=== PATIENT | female | born 1970 ===

== ENCOUNTER 2020-01-26 10:21 | Emergency (ER) | payer SELFPAY ==
--- NOTE | 2020-01-26 12:27 | Cat Scan Report ---
CT HEAD WITHOUT CONTRAST INDICATION / CLINICAL INFORMATION: Hypertensive patient with headache and dizziness. TECHNIQUE: All CT scans at this location are performed using CT dose reduction for ALARA by means of automated e xposure control. COMPARISON: None available. FINDINGS: HEMORRHAGE: No evidence of intracranial hemorrhage or extra-axial fluid collection. EXTRA-AXIAL SPACES: Cortical sulci, sylvian fissures and basilar cisterns have an unremarkable appear ance. VENTRICULAR SYSTEM: The ventricular system is of normal size and configuration. CEREBRAL PARENCHYMA: No areas of abnormal brain parenchymal attenuation are identified. There is no i ndication of recent infarction. MIDLINE SHIFT OR HERNIATION: There is no mass effect. CEREBELLUM / BRAINSTEM: Brainstem and cerebellum have an unremarkable appearance. INTRACRANIAL VESSELS:No abnormalities are identified on this noncontrast head CT. ORBITS: visualized portions of the orbits have an unremarkable appearance. SOFT TISSUES of HEAD: No significant abnormality. CALVARIUM: Evaluation of bone windows reveals no abnormalities. PARANASAL SINUSES / MASTOID AIR CELLS: Mild mucosal thickening is seen in the dependent portion of th e left sphenoid sinus. Paranasal sinuses are otherwise free from inflammatory mucosal disease. Mastoi d air cells are normally pneumatized. ADDITIONAL FINDINGS: Beam hardening artifact produces a streak-like area of increased attenuation tra versing the left frontal lobe. IMPRESSION: 1. No abnormalities are identified on head CT without contrast. Signer Name: Camden Arreguin MD Signed: 01/26/2020 12:22 PM Workstation Name: [id number]
[2020-01-26] MEDS ORDERED: cloNIDine 0.1 MG TAB PO ONE (14:12)
[2020-01-26] MEDS ORDERED: KETOROLAC 60 MG/2 ML INJ IM ONE (14:12)
--- NOTE | 2020-01-26 15:38 | Emergency Department Report ---
ED Headache HPI - General Chief Complaint: Headache Stated Complaint: DIZZY/CORNEA TRANSPLANT Time Seen by Provider: 01/26/20 14:01 - History of Present Illness Initial Comments: Patient is a 49-year-old female who is presenting with a headache. Patient states that she had some mild dizziness associated with a headache. Symptoms started last night. Patient denies any chest pain shortness of breath fevers chills nausea vomiting. Patient is only past medical issue is that she had a corneal implant several years ago in [place]. Head Injury Location: frontal Recent Head Trauma: head trauma > 24 hrs ago (Patient states she hit the left side of her forehead approximately a week ago but had no residual issues) Associated Symptoms: denies: confusion, fatigue, fever/chills, flushing, loss of consciousness, nausea/vomiting, nasal congestion, nasal drainage, numbness in legs/feet, seizures, sinus infection, stiff neck Allergies/Adverse Reactions: Allergies No Known Allergies Allergy (Unverified 01/26/20 10:44) Home Medications: Ambulatory Orders Amlodipine Besylate [Norvasc] 5 mg PO DAILY #30 tablet 01/26/20 ED Review of Systems ROS: Stated complaint: DIZZY/CORNEA TRANSPLANT Other details as noted in HPI Comment: All other systems reviewed and negative ED Past Medical Hx - Past Medical History Previous Medical History?: Yes Hx Hypertension: Yes - Surgical History Past Surgical History?: Yes Additional Surgical History: C section - Social History Smoking Status: Never Smoker Substance Use Type: None - Medications Home Medications: Home Medications Medication Instructions Recorded Confirmed Last Taken Type Amlodipine Besylate [Norvasc] 5 mg PO DAILY #30 tablet 01/26/20 Unknown Rx ED Physical Exam - General Limitations: Language Barrier General appearance: alert, in no apparent distress - Head Head exam: Present: atraumatic, normocephalic - Eye Eye exam: Present: normal appearance - ENT ENT exam: Present: mucous membranes moist - Neck Neck exam: Present: normal inspection - Respiratory Respiratory exam: Present: normal lung sounds bilaterally. Absent: respiratory distress, wheezes, rales, rhonchi, stridor - Cardiovascular Cardiovascular Exam: Present: regular rate, normal rhythm, normal heart sounds. Absent: systolic murmur, diastolic murmur, rubs, gallop - GI/Abdominal GI/Abdominal exam: Present: soft, normal bowel sounds - Extremities Exam Extremities exam: Present: normal inspection - Back Exam Back exam: Present: normal inspection - Neurological Exam Neurological exam: Present: alert, oriented X3 - Psychiatric Psychiatric exam: Present: normal affect, normal mood - Skin Skin exam: Present: warm, dry, intact, normal color. Absent: rash ED Course Vital Signs 01/26/20 01/26/20 01/26/20 10:40 14:00 14:15 Temperature 98.2 F Pulse Rate 77 71 78 Respiratory 18 10 L 8 L Rate Blood Pressure 185/99 192/96 171/93 O2 Sat by Pulse 99 100 Oximetry 01/26/20 01/26/20 01/26/20 14:30 14:45 15:00 Temperature Pulse Rate 73 72 78 Respiratory 10 L 11 L 14 Rate Blood Pressure 166/98 169/92 169/92 O2 Sat by Pulse 99 99 100 Oximetry 01/26/20 01/26/20 15:15 15:30 Temperature Pulse Rate 68 72 Respiratory 10 L 13 Rate Blood Pressure 174/87 155/85 O2 Sat by Pulse 100 96 Oximetry - Reevaluation(s) Reevaluation #1: 01/26/20 15:40 Patient's blood pressure was elevated on arrival and on recheck. Patient states she is not had a history of hypertension. ED Medical Decision Making - Lab Data Result diagrams: 01/26/20 15:38 01/26/20 15:38 - Radiology Data [facility] [address] [place] [address] Cat Scan Report Signed Patient: WENCESLAO POZO MR#: [id number] : 1970 Acct:[id number] Age/Sex: 49 / F ADM Date: 01/26/20 Loc: ED Attending Dr: Ordering Physician: SYLVIA VERMA MD Date of Service: 01/26/20 Procedure(s): CT head/brain wo con Accession Number(s): [id number] cc: SYLVIA VERMA MD CT HEAD WITHOUT CONTRAST INDICATION / CLINICAL INFORMATION: Hypertensive patient with headache and dizziness. TECHNIQUE: All CT scans at this location are performed using CT dose reduction for ALARA by means of automated exposure control. COMPARISON: None available. FINDINGS: HEMORRHAGE: No evidence of intracranial hemorrhage or extra-axial fluid collection. EXTRA-AXIAL SPACES: Cortical sulci, sylvian fissures and basilar cisterns have an unremarkable appearance. VENTRICULAR SYSTEM: The ventricular system is of normal size and configuration. CEREBRAL PARENCHYMA: No areas of abnormal brain parenchymal attenuation are identified. There is no indication of recent infarction. MIDLINE SHIFT OR HERNIATION: There is no mass effect. CEREBELLUM / BRAINSTEM: Brainstem and cerebellum have an unremarkable appearance. INTRACRANIAL VESSELS:No abnormalities are identified on this noncontrast head CT. ORBITS: visualized portions of the orbits have an unremarkable appearance. SOFT TISSUES of HEAD: No significant abnormality. CALVARIUM: Evaluation of bone windows reveals no abnormalities. PARANASAL SINUSES / MASTOID AIR CELLS: Mild mucosal thickening is seen in the dependent portion of the left sphenoid sinus. Paranasal sinuses are otherwise free from inflammatory mucosal disease. Mastoid air cells are normally pneumatized. ADDITIONAL FINDINGS: Beam hardening artifact produces a streak-like area of increased attenuation traversing the left frontal lobe. IMPRESSION: 1. No abnormalities are identified on head CT without contrast. Signer Name: Camden Arreguin MD Signed: 01/26/2020 12:22 PM Workstation Name: [id number] - Medical Decision Making Patient's blood pressure is improving. Laboratory studies showed no dysfunction of her kidneys. Patient be discharged home with [facility] and per follow-up with primary care. Critical care attestation.: If time is entered above; I have spent that time in minutes in the direct care of this critically ill patient, excluding procedure time. ED Disposition Clinical Impression: Hypertensive urgency Headache Qualifiers: Headache type: tension-type Headache chronicity pattern: acute headache Intractability: not intractable Qualified Code(s): G44.209 - Tension-type headache, unspecified, not intractable Disposition: DC-01 TO HOME OR SELFCARE Is pt being admited?: No Does the pt Need Aspirin: No Condition: Stable Instructions: Hypertension (ED) Referrals: MISBAH BURGOS MD [Staff Physician] - 7-10 days Time of Disposition: 16:31 Print Language: [place]
[2020-01-26 15:53] LABS: Basophils # (Auto) 0.1 K/mm3 (0.0-0.1); Eosinophils # (Auto) 0.3 K/mm3 (0.0-0.4); Eosinophils % (Auto) 3.3 % (0.0-4.3); Hematocrit 43.5 % (30.3-42.9); Hemoglobin 14.5 gm/dl (10.1-14.3); Lymphocytes % (Auto) 22.6 % (13.4-35.0); Mean Corpuscular HGB Conc 33 % (30-34); Mean Corpuscular Volume 88 fl (79-97); Monocytes # (Auto) 0.6 K/mm3 (0.0-0.8); Monocytes % (Auto) 6.4 % (0.0-7.3); Platelet Count 282 K/mm3 (140-440); Red Blood Count 4.96 M/mm3 (3.65-5.03)
[2020-01-26 16:11] LABS: BUN/Creatinine Ratio 12; Blood Urea Nitrogen 7 mg/dL (7-17); Calcium 9.1 mg/dL (8.4-10.2); Hemolysis Index 8
[2020-01-26 17:03] VITALS: BP 152/87
== END 2020-01-26 17:04 | disposition home or self-care (01) ==
LOC: ED 10:21
DX: I16.0 Hypertensive urgency (principal); R51 Headache; I10 Essential (primary) hypertension; Z79.899 Other long term (current) drug therapy; Z98.890 Other specified postprocedural states; Z94.7 Corneal transplant status
CPT/HCPCS: 36415; 70450; 80048; 85025; 96372; 99284; J1885